=== PATIENT | male | born 1990 | race African-American/Black ===

== ENCOUNTER 2017-05-16 08:29 | Emergency (ER) | payer OTHER ==
[~2017-05-16] VITALS: Ht 188 cm; Wt 86.0 kg
[~2017-05-16 08:29] MED LIST: RANI150 PO
[2017-05-16 08:31] VITALS: BP 127/79; PULSE 62; RESP 20; TEMP 98.2; O2SAT 99
--- NOTE | 2017-05-16 10:33 | PD ---
HPI Chief Complaint: Musculoskeletal Complaint Time Seen by Provider: 10:30 Travel History International Travel<30 days: No Contact w/Intl Traveler<30days: No Traveled to known affect area: No History of Present Illness HPI 26-year-old male presents emergency department for evaluation of left hand pain. Patient reports he was playing basketball yesterday when his fourth and fifth digit got caught in another player's shirt causing a twisting injury. He has pain with range of motion and flexion of the fifth digit. Mild amount of swelling. Pain is constant, nonradiating, severity 3 at 10. He denies numbness /tingling/weakness in the extremity. PFSH Past Medical History Medical History: Denies Significant Hx Social History Tobacco Use: No Allergies-Medications (Allergen,Severity, Reaction): Coded Allergies: No Known Allergies (Unverified , 05/16/17) Reported Meds & Prescriptions Reported Meds & Active Scripts Active Review of Systems Except as stated in HPI: all other systems reviewed are Neg Physical Exam Narrative GENERAL: Well-nourished, well-developed patient. SKIN: Focused skin assessment warm/dry. HEAD: Normocephalic. EYES: No scleral icterus. No injection or drainage. NECK: Supple, trachea midline. No JVD or lymphadenopathy. CARDIOVASCULAR: Regular rate and rhythm without murmurs, gallops, or rubs. RESPIRATORY: Breath sounds equal bilaterally. No accessory muscle use. GASTROINTESTINAL: Abdomen soft, non-tender, nondistended. MUSCULOSKELETAL: No cyanosis, or edema. Left hand: Notable swelling and tenderness over the left fourth and fifth MCP joint. Patient has full range of motion and normal sensation within the digits. 2+ distal pulses. No deformity. Brisk cap refill. BACK: Nontender without obvious deformity. No CVA tenderness. Data Data Last Documented VS Vital Signs Date Time Temp Pulse Resp B/P Pulse Ox O2 Delivery O2 Flow Rate FiO2 05/16/17 08:31 98.2 62 20 127/79 99 Room Air Orders Hand, Complete ([id number]) (05/16/17 ) [facility] Medical Decision Making Medical Screen Exam Complete: Yes Emergency Medical Condition: Yes Differential Diagnosis Finger fracture versus finger sprain versus contusion Narrative Course 26-year-old male with chief complaint of left hand pain status post twisting injury while playing vascularly yesterday. Patient has notable point tenderness and swelling over the fourth and fifth MCP joint. The extremity is neurovascularly intact. There is no deformity. X-ray pending X-rays negative for fracture. Patient be treated for finger sprain. Diagnosis Primary Impression: Finger sprain Qualified Code: S63.657A - Sprain of metacarpophalangeal (MCP) joint of left little finger, initial encounter Referrals: Primary Care Physician Additional Instructions: Take [id number] Motrin 600 800 mg every 6-8 hours as needed for pain. Avoid heavy lifting or strenuous activity. Ice and elevate the extremity. Follow-up with her primary care doctor. Disposition: 01 DISCHARGE HOME Condition: Stable Gertrude Erickson May 16, 2017 10:33
--- NOTE | 2017-05-16 11:24 | RADRPT ---
EXAM DATE/TIME: 05/16/2017 10:38 [place] COMPARISON: No previous studies available for comparison. INDICATIONS : Left medial hand pain. Basketball injury last night. MEDICAL HISTORY : None. SURGICAL HISTORY : None. ENCOUNTER: Initial ACUITY: 2 days PAIN SCORE: 8/10 LOCATION: Left medial hand. FINDINGS: Three view examination of the left hand demonstrates no soft tissue swelling, dislocation, or fractur e. The carpal bones appear intact. The interphalangeal and metacarpophalangeal joints are intact. Bony mineralization is normal. CONCLUSION: No acute disease. Louie Serrano MD on May 16, 2017 at 11:21 Board Certified Radiologist. This report was verified electronically.
== END 2017-05-16 11:31 | disposition home or self-care (01) ==
LOC: NEPD 08:29
DX: S63.655A Sprain of metacarpophalangeal joint of left ring finger, initial encounter (principal); S63.657A Sprain of metacarpophalangeal joint of left little finger, initial encounter; X50.1XXA Overexertion from prolonged static or awkward postures, initial encounter; Y93.67 Activity, basketball
CPT/HCPCS: 73130; 99283